=== PATIENT | female | born 1955 | race African-American/Black ===

== ENCOUNTER 2021-05-29 23:20 | Emergency (ER) | payer MEDICAID ==
[~2021-05-29] VITALS: Ht 162.6 cm; Wt 55.0 kg
[2021-05-30] MEDS ORDERED: ACETAMINOPHEN 325MG TABLET PO ONE
[2021-05-30 02:00] VITALS: BP 152/82
== END 2021-05-30 03:06 | disposition home or self-care (01) ==
LOC: ER 23:20
DX: S60.455A Superficial foreign body of left ring finger, initial encounter (principal); S60.512A Abrasion of left hand, initial encounter; W01.0XXA Fall on same level from slipping, tripping and stumbling without subsequent striking against object, initial encounter; Y93.89 Activity, other specified; Y92.018 Other place in single-family (private) house as the place of occurrence of the external cause
CPT/HCPCS: 71101; 73130; 99284

== ENCOUNTER 2022-11-21 14:22 | Emergency (ER) | payer MEDICAID, OTHER ==
[~2022-11-21] VITALS: Ht 165.1 cm; Wt 75.0 kg
[2022-11-21 14:28] VITALS: BP 162/97; PULSE 76; RESP 16; TEMP 98.3; O2SAT 97
[2022-11-21] MEDS ORDERED: ACET-2708 MT (19:32)
== END 2022-11-21 19:50 | disposition home or self-care (01) ==
LOC: ER 14:22
DX: R51.9 Headache, unspecified (principal); I11.0 Hypertensive heart disease with heart failure; I50.9 Heart failure, unspecified; E11.9 Type 2 diabetes mellitus without complications
CPT/HCPCS: 70486; 99284